=== PATIENT | female | born 1960 | race Caucasian/White ===

== ENCOUNTER 2020-09-21 06:32 | Day surgery (SDC) | payer OTHER, SELFPAY ==
[2020-09-17 08:56] VITALS: BMI 19.6
--- NOTE | 2020-09-19 10:45 | HO.ANESPROP2 ---
Documented by User: Ashley Buckley 09/19/20 10:46 HPI - Anesthesia Eval Consult details Narrative: 59yo F for Colonoscopy PMFSH Active Problems Active Problems: All Active Problems (Updated 09/17/20 @ 08:56 by Yi Monique) Idiopathic retinal vasculitis, retinal aneurysm, and neuroretinitis syndrome (Acute) Past Medical History Medical History COVID-19 vaccine administered Retinal vasculitis Surgical History Surgical History H/O arthroscopic knee surgery H/O colonoscopy Social History Social History Are you a primary nonfarm animal caretaker to a significant other at home: No Do you presently have visiting nurse or other home services: No Use of substances other than those prescribed or required for medical reasons: No Have you been hit, kicked, punched, or otherwise hurt by someone within the past year? If so, by whom?: No Are you DNR?: No Advance Directives Information Provided: No Recently lost weight without trying: No Eating poorly because of decreased appetite: No Nutrition Risks: No Nutritional Risk Poor oral hygiene: No Meds Allergies Allergy/AdvReac Type Severity Reaction Status Date / Time erythromycin base Allergy Intermediate Hives Verified 09/17/20 08:52 [ERYTHROMYCIN BASE] Penicillins [PENICILLINS] Allergy Intermediate Hives Verified 09/17/20 08:52 Sulfa (Sulfonamide Allergy Intermediate Hives Verified 09/17/20 08:52 Antibiotics) [SULFA (SULFONAMIDE ANTIBIOTICS)] Home Medications Medication Instructions Recorded Confirmed Last Taken Type cholecalciferol (vitamin D3) 125 mcg PO DAILY 03/08/20 09/17/20 Unknown History [Vitamin D3] cyclosporine modified 100 mg PO DAILY 03/08/20 09/17/20 Unknown History lactobacillus combination no.4 3,000 mmu cells PO DAILY 03/08/20 09/17/20 Unknown History [Probiotic] mycophenolate mofetil 500 mg PO BID 03/08/20 09/17/20 Unknown History omega-3 fatty acids [Fish Oil] 1,000 mg PO DAILY 03/08/20 09/21/20 09/12/20 History calcium carbonate [Calcium 600] 600 mg PO DAILY 09/17/20 09/17/20 Unknown History ferrous sulfate 27 mg PO DAILY 09/17/20 09/21/20 09/12/20 History rituximab [Rituxan] 10 mg IV Q10W 09/17/20 09/17/20 09/13/20 History vitamin B complex 1 cap PO DAILY 09/17/20 09/17/20 Unknown History Exam Exam Date and Time: September 19, 2020 1045 Height,Weight and Vital Signs: Height 5 ft 5 in Weight 53.524 kg Pertinent Lab Results Pertinent Lab Results: Laboratory Tests 09/13/20 09/13/20 08:52 08:52 WBC 8.9 Hgb 12.8 Hct 39.8 Plt Count 275 Sodium 142 Potassium 4.3 Chloride 106 Carbon Dioxide 27 BUN 18 H Creatinine 0.92 Assessment and Plan Assessment Anesthesia Assessment: Chart Reviewed Documented by User: Mikal León 09/21/20 07:14 PMF Past Medical History Medical History COVID-19 vaccine administered Retinal vasculitis Surgical History Surgical History H/O arthroscopic knee surgery H/O colonoscopy Social History Social History Are you a primary nonfarm animal caretaker to a significant other at home: No Do you presently have visiting nurse or other home services: No Use of substances other than those prescribed or required for medical reasons: No Have you been hit, kicked, punched, or otherwise hurt by someone within the past year? If so, by whom?: No Are you DNR?: No Advance Directives Information Provided: No Recently lost weight without trying: No Eating poorly because of decreased appetite: No Nutrition Risks: No Nutritional Risk Poor oral hygiene: No Meds Allergies Allergy/AdvReac Type Severity Reaction Status Date / Time erythromycin base Allergy Intermediate Hives Verified 09/17/20 08:52 [ERYTHROMYCIN BASE] Penicillins [PENICILLINS] Allergy Intermediate Hives Verified 09/17/20 08:52 Sulfa (Sulfonamide Allergy Intermediate Hives Verified 09/17/20 08:52 Antibiotics) [SULFA (SULFONAMIDE ANTIBIOTICS)] Home Medications Medication Instructions Recorded Confirmed Last Taken Type cholecalciferol (vitamin D3) 125 mcg PO DAILY 03/08/20 09/17/20 Unknown History [Vitamin D3] cyclosporine modified 100 mg PO DAILY 03/08/20 09/17/20 Unknown History lactobacillus combination no.4 3,000 mmu cells PO DAILY 03/08/20 09/17/20 Unknown History [Probiotic] mycophenolate mofetil 500 mg PO BID 03/08/20 09/17/20 Unknown History omega-3 fatty acids [Fish Oil] 1,000 mg PO DAILY 03/08/20 09/21/20 09/12/20 History calcium carbonate [Calcium 600] 600 mg PO DAILY 09/17/20 09/17/20 Unknown History ferrous sulfate 27 mg PO DAILY 09/17/20 09/21/20 09/12/20 History rituximab [Rituxan] 10 mg IV Q10W 09/17/20 09/17/20 09/13/20 History vitamin B complex 1 cap PO DAILY 09/17/20 09/17/20 Unknown History Exam Airway Mallampati Class: II TM Dist: >3cm Neck ROM: Full
[2020-09-21 06:41] VITALS: BP 98/64; PULSE 60; RESP 16; TEMP 36.6; O2SAT 99
[2020-09-21] MEDS: Lactated Ringers 1,000 ML 100 ML IVCONT (07:03)
--- NOTE | 2020-09-21 07:33 | MHC.SHP ---
Pre-Procedural Eval Section B Chief Complaint: change in bowel habit Details of Present Illness: screening Relevant Family History (Specify if Yes): No Relevant Social History: None Present Medications: see Short Stay Collaborative assessment Medical History: No relevant PMH History of Previous Operations: No relevant previous surgery Allergies: Allergies Allergy/AdvReac Type Severity Reaction Status Date / Time erythromycin base Allergy Intermediate Hives Verified 09/17/20 08:52 [ERYTHROMYCIN BASE] Penicillins [PENICILLINS] Allergy Intermediate Hives Verified 09/17/20 08:52 Sulfa (Sulfonamide Allergy Intermediate Hives Verified 09/17/20 08:52 Antibiotics) [SULFA (SULFONAMIDE ANTIBIOTICS)] Review of Systems Sugical H&P ROS: Negative: Constitution, Cardiovascular, Respiratory, Neurological, Psychiatric, Hem-Onc, Allergic/Immunologic, Gastrointestinal, Genitourinary, Musculoskeletal, Integumentary, Endocrine and Eyes/Ears/Nose/Throat Exam Surgical H&P Exam: Normal: HEENT, Normal: Heart, Normal: Lungs, Normal: Extremities, Normal: Abdomen, Normal: Skin and Normal: Neurological Plan Diagnosis/Plan: Unchanged I have reviewed the history and physical and performed a pertinent physical examination on my patient. No changes have occurred unless specified.
[2020-09-21 08:11] VITALS: BP 89/56; PULSE 65; RESP 18; TEMP 36.6; O2SAT 98
--- NOTE | 2020-09-21 08:13 | PM.OP ---
Brief Operative Note Date of Service: 09/21/20 Pre-op diagnosis: screening Post-op diagnosis: same Procedure: colonoscopy Surgeon: Heath Castellano Was an Communications Equipment Operator used for this Procedure?: No Estimated blood loss (mL): 0 Pathology: none sent Condition: stable
[2020-09-21 08:26] VITALS: BP 98/62; PULSE 67; RESP 18; TEMP 36.4
--- NOTE | 2020-09-21 11:00 | OP_ITS ---
SURGEON: Heath Castellano MD INDICATIONS: Colon cancer screening, change in bowel habits, and prior history of adenomatous colon polyps. PREOPERATIVE DIAGNOSIS: POSTOPERATIVE DIAGNOSIS: PROCEDURE PERFORMED: Colonoscopy to the terminal ileum. ESTIMATED BLOOD LOSS: COMPLICATIONS: ANESTHESIA: ASSISTANTS: SPECIMENS: MEDICATIONS: Monitored anesthesia care. DESCRIPTION OF PROCEDURE: History and physical performed. The risks and benefits of the procedure were explained to the patient. Informed consent was obtained. The patient was placed in the left lateral decubitus position. A digital rectal exam was performed and was found to be normal. The Olympus pediatric video colonoscope was introduced into the rectum and advanced to the cecum without difficulty. The cecum was identified by transillumination, palpation, and identification of ileocecal valve. Examination was performed and the scope was removed. She tolerated the procedure well and was taken to recovery area in stable condition. FINDINGS: The terminal ileum was examined and appeared normal briefly. The visualized colonic mucosa was within normal limits without evidence of masses or ulcers. There was some liquid stool in the colon, which was washed and suctioned as best possible. No polyps were identified. Retroflexed examination showed small internal hemorrhoids. IMPRESSION: Normal colonoscopy. RECOMMENDATIONS: 1. Follow up as needed. 2. Repeat colonoscopy is recommended in 5 to 10 years based on current screening guidelines. MD NAZARIO Pepe/YUMIKO / [id number] MTDD
== END 2020-09-21 09:20 | disposition home or self-care (01) ==
PROVIDERS: PCP Internal Medicine; Visit Provider Internal Medicine Gastroenterology
PROC: 0DJD8ZZ Inspection of Lower Intestinal Tract, Via Natural or Artificial Opening Endoscopic (ICD-10-PCS; CPT 45378; principal; 2020-09-21 07:30)
DX: R19.4 Change in bowel habit (principal); Z86.010 Personal history of colon polyps; K64.8 Other hemorrhoids; H35.069 Retinal vasculitis, unspecified eye; M19.90 Unspecified osteoarthritis, unspecified site; Z79.899 Other long term (current) drug therapy
CPT/HCPCS: 45378

== ENCOUNTER → 2020-12-21 07:37 | Outpatient (BNVA) | payer OTHER, SELFPAY | PROVIDERS: Visit Provider Student in an Organized Health Care Education/Training Program ==

== ENCOUNTER → 2024-01-05 10:05 | Outpatient (RCR) | payer OTHER, SELFPAY ==
[2020-03-08 08:20] VITALS: BMI 20.7
[2020-03-08 08:21] VITALS: BP 120/73; PULSE 86; RESP 18; TEMP 36.5; O2SAT 99
[2020-03-08 08:28] LABS: MANUAL DIFF FLAG NO
[2020-03-08 08:34] LABS: Basophils Absolute Auto 0.1 X10*3/uL (0.0-0.2); Basophils Percent Auto 0.8 % (0-2); Eosinophils Absolute Auto 0.1 X10*3/uL (0.0-0.4); Eosinophils Percent Auto 0.7 % (0-4); Hemoglobin 13.5 g/dl (12.0-16.0); Imm Gran Abs Auto 0.02 X10*3/uL (0.00-0.03); Imm Gran Pct Auto 0.2 % (0.0-0.4); Lymphocytes Absolute Auto 1.2 X10*3/uL (1.2-4.9); Lymphocytes Percent Auto 13.5 % (20-40); Mean Corpuscular HGB Conc 32.1 g/dl (31.0-35.0); Mean Corpuscular Hemoglobin 28.2 pg (27.0-33.0); Mean Corpuscular Volume 87.7 fL (80-98); Mean Platelet Volume 9.2 fL (9.4-12.3); Monocytes Absolute Auto 0.9 X10*3/uL (0.1-1.2); Monocytes Percent Auto 9.8 % (2-11); Neutrophils Absolute Auto 6.7 X10*3/uL (2.0-8.3); Platelet Count 293 X10*3/uL (160-400); Red Blood Count 4.79 X10*6/uL (4.20-5.50); Red Cell Distribution Width 13.2 % (11.0-16.0); White Blood Count 8.9 X10*3/uL (4.8-10.8)
[2020-03-08 09:00] LABS: Alanine Aminotransferase 23 U/L (0-31); Albumin Level 4.4 g/dL (3.5-5.0); Alkaline Phosphatase 82 U/L (39-117); Anion Gap 12 (12-20); Aspartate Amino Transferase 29 U/L (5-31); Bilirubin Total 0.6 mg/dL (0.0-1.0); Blood Urea Nitrogen 12 mg/dL (9-16); Calcium 9.1 mg/dL (8.4-10.2); Carbon Dioxide 30 mmol/L (22-29); Chloride 104 mmol/L (96-108); Estimated Glomerular Filt Rate 58; Glucose Random 80 mg/dL (60-115); Potassium 3.8 mmol/l (3.3-5.1); Sodium 142 mmol/L (135-145); Total Protein 6.8 g/dL (6.5-8.0)
[2020-03-08] MEDS: Acetaminophen 325 MG TABLET 650 MG PO (10:09)
[2020-03-08] MEDS: diphenhydrAMINE HCL 25 MG TABLET 50 MG PO (10:10)
[2020-03-08] MEDS: methylPREDNISolone Sod Succ/PF 125 MG/2 ML VIAL IVPUSH (10:10)
[2020-05-03 08:17] VITALS: BP 115/63; PULSE 82; RESP 18; TEMP 36.9; O2SAT 99; BMI 20.2
[2020-05-03 09:01] LABS: MANUAL DIFF FLAG NO
[2020-05-03 09:18] LABS: Basophils Absolute Auto 0.1 X10*3/uL (0.0-0.2); Basophils Percent Auto 0.6 % (0-2); Eosinophils Absolute Auto 0.1 X10*3/uL (0.0-0.4); Eosinophils Percent Auto 0.7 % (0-4); Hematocrit 41.8 % (37-47); Hemoglobin 13.5 g/dl (12.0-16.0); Imm Gran Abs Auto 0.01 X10*3/uL (0.00-0.03); Imm Gran Pct Auto 0.1 % (0.0-0.4); Lymphocytes Absolute Auto 1.1 X10*3/uL (1.2-4.9); Lymphocytes Percent Auto 13.6 % (20-40); Mean Corpuscular HGB Conc 32.3 g/dl (31.0-35.0); Mean Corpuscular Hemoglobin 28.2 pg (27.0-33.0); Mean Corpuscular Volume 87.4 fL (80-98); Mean Platelet Volume 9.1 fL (9.4-12.3); Monocytes Percent Auto 11.7 % (2-11); Neutrophils Percent Auto 73.3 % (45-73); Platelet Count 295 X10*3/uL (160-400); Red Blood Count 4.78 X10*6/uL (4.20-5.50); Red Cell Distribution Width 13.1 % (11.0-16.0); White Blood Count 8.2 X10*3/uL (4.8-10.8)
[2020-05-03 09:44] LABS: Alanine Aminotransferase 33 U/L (0-31); Albumin Level 4.2 g/dL (3.5-5.0); Alkaline Phosphatase 76 U/L (39-117); Anion Gap 12 (12-20); Aspartate Amino Transferase 36 U/L (5-31); Bilirubin Total 0.6 mg/dL (0.0-1.0); Blood Urea Nitrogen 17 mg/dL (9-16); Calcium 8.8 mg/dL (8.4-10.2); Carbon Dioxide 26 mmol/L (22-29); Chloride 104 mmol/L (96-108); Creatinine Clr Calc Pharmacy 58.6; Estimated Glomerular Filt Rate > 60; Glucose Random 78 mg/dL (60-115); Potassium 4.2 mmol/l (3.3-5.1); Sodium 138 mmol/L (135-145); Total Protein 6.3 g/dL (6.5-8.0)
[2020-05-03] MEDS: diphenhydrAMINE HCL 25 MG TABLET 50 MG PO (10:02)
[2020-05-03] MEDS: Acetaminophen 325 MG TABLET 650 MG PO (10:02)
[2020-05-03] MEDS: methylPREDNISolone Sod Succ/PF 125 MG/2 ML VIAL IVPUSH (10:05)
--- NOTE | 2020-05-03 13:07 | MHC.HEMONC ---
Pt here for chemo infusion. Labs drawn and reviewed. IV started left forearm. Chemo infused and pt tolerated well. Next appointment scheduled for 2 months.
--- NOTE | 2020-05-03 16:24 | MHC.HEMONCSW ---
KATT JORGENSEN AT [facility].....A# [id number] FOR RITUXAN 11/08/19 TO 05/05/20 TODAY I ATTEMPTED TO RENEW THIS MEDICATION BUT IT WENT TO [facility] CLINICAL REVIEW. T# [id number] WAIT DECISION.
--- NOTE | 2020-05-04 14:34 | MHC.HEMONCSW ---
PER RN SHANTI, WE DO NOT ORDER RITUXAN. I PHONED, SPOKE WITH NELSON AND RECINDED REFERRAL. JORDIN WILL HAVE THE REFERRING PROVIDER GET THE AUTH.
[2020-07-05 08:12] VITALS: BP 119/69; PULSE 90; RESP 18; TEMP 37.2; O2SAT 98; BMI 20.2
[2020-07-05 08:38] LABS: MANUAL DIFF FLAG NO
[2020-07-05 08:43] LABS: Basophils Absolute Auto 0.1 X10*3/uL (0.0-0.2); Basophils Percent Auto 0.7 % (0-2); Eosinophils Percent Auto 0.3 % (0-4); Hematocrit 41.4 % (37-47); Hemoglobin 13.1 g/dl (12.0-16.0); Imm Gran Abs Auto 0.03 X10*3/uL (0.00-0.03); Imm Gran Pct Auto 0.3 % (0.0-0.4); Lymphocytes Percent Auto 9.5 % (20-40); Mean Corpuscular HGB Conc 31.6 g/dl (31.0-35.0); Mean Corpuscular Hemoglobin 27.9 pg (27.0-33.0); Mean Corpuscular Volume 88.3 fL (80-98); Mean Platelet Volume 9.4 fL (9.4-12.3); Monocytes Absolute Auto 0.8 X10*3/uL (0.1-1.2); Monocytes Percent Auto 7.7 % (2-11); Neutrophils Absolute Auto 8.8 X10*3/uL (2.0-8.3); Neutrophils Percent Auto 81.5 % (45-73); Platelet Count 314 X10*3/uL (160-400); Red Blood Count 4.69 X10*6/uL (4.20-5.50); Red Cell Distribution Width 12.7 % (11.0-16.0); White Blood Count 10.7 X10*3/uL (4.8-10.8)
[2020-07-05 09:20] LABS: Alanine Aminotransferase 17 U/L (0-31); Albumin Level 4.3 g/dL (3.5-5.0); Alkaline Phosphatase 85 U/L (39-117); Anion Gap 13 (12-20); Aspartate Amino Transferase 22 U/L (5-31); Bilirubin Total 0.5 mg/dL (0.0-1.0); Blood Urea Nitrogen 21 mg/dL (9-16); Calcium 9.2 mg/dL (8.4-10.2); Carbon Dioxide 26 mmol/L (22-29); Chloride 108 mmol/L (96-108); Creatinine Clr Calc Pharmacy 53.7; Estimated Glomerular Filt Rate > 60; Glucose Random 68 mg/dL (60-115); Potassium 4.1 mmol/L (3.3-5.1); Sodium 143 mmol/L (135-145); Total Protein 6.7 g/dL (6.5-8.0)
[2020-07-05] MEDS: methylPREDNISolone Sod Succ 125 MG/2 ML VIAL IVPUSH (09:45)
[2020-07-05] MEDS: Acetaminophen 325 MG TABLET 650 MG PO (09:48)
[2020-07-05] MEDS: diphenhydrAMINE HCL 25 MG TABLET 50 MG PO (09:49)
--- NOTE | 2020-07-05 12:21 | MHC.HEMONC ---
Pt here for Rituximab infusion. Labs drawn and reviewed. IV started left forearm. Infusion done and pt tolerated well. Scheduled to return for next treatment in 2 months.
[2020-09-13 08:22] VITALS: BP 128/78; PULSE 83; RESP 18; TEMP 36.6; O2SAT 100; BMI 20.9
[2020-09-13 09:03] LABS: MANUAL DIFF FLAG NO
[2020-09-13 09:05] LABS: Basophils Absolute Auto 0.1 X10*3/uL (0.0-0.2); Basophils Percent Auto 0.8 % (0-2); Eosinophils Absolute Auto 0.1 X10*3/uL (0.0-0.4); Eosinophils Percent Auto 0.6 % (0-4); Hematocrit 39.8 % (37-47); Hemoglobin 12.8 g/dl (12.0-16.0); Imm Gran Abs Auto 0.03 X10*3/uL (0.00-0.03); Imm Gran Pct Auto 0.3 % (0.0-0.4); Lymphocytes Absolute Auto 1.1 X10*3/uL (1.2-4.9); Lymphocytes Percent Auto 12.8 % (20-40); Mean Corpuscular HGB Conc 32.2 g/dl (31.0-35.0); Mean Corpuscular Hemoglobin 28.3 pg (27.0-33.0); Mean Corpuscular Volume 88.1 fL (80-98); Mean Platelet Volume 9.1 fL (9.4-12.3); Monocytes Absolute Auto 0.9 X10*3/uL (0.1-1.2); Monocytes Percent Auto 10.1 % (2-11); Neutrophils Absolute Auto 6.7 X10*3/uL (2.0-8.3); Neutrophils Percent Auto 75.4 % (45-73); Platelet Count 275 X10*3/uL (160-400); Red Blood Count 4.52 X10*6/uL (4.20-5.50); Red Cell Distribution Width 13.3 % (11.0-16.0); White Blood Count 8.9 X10*3/uL (4.8-10.8)
[2020-09-13 09:37] LABS: Alanine Aminotransferase 14 U/L (0-31); Albumin Level 4.1 g/dL (3.5-5.0); Alkaline Phosphatase 85 U/L (39-117); Anion Gap 13 (12-20); Aspartate Amino Transferase 19 U/L (5-31); Bilirubin Total 0.7 mg/dL (0.0-1.0); Blood Urea Nitrogen 18 mg/dL (9-16); Calcium 9.4 mg/dL (8.4-10.2); Carbon Dioxide 27 mmol/L (22-29); Chloride 106 mmol/L (96-108); Creatinine Clr Calc Pharmacy 54.3; Estimated Glomerular Filt Rate > 60; Glucose Random 74 mg/dL (60-115); Potassium 4.3 mmol/L (3.3-5.1); Sodium 142 mmol/L (135-145); Total Protein 6.4 g/dL (6.5-8.0)
[2020-09-13] MEDS: diphenhydrAMINE HCL 25 MG TABLET 50 MG PO (09:54)
[2020-09-13] MEDS: Acetaminophen 325 MG TABLET 650 MG PO (09:55)
--- NOTE | 2020-09-13 13:09 | MHC.HEMONC ---
Pt here for Cycle 4 day 1 of Ritoxan IV. Blood drawn by bird trapper and sent to lab. Peripheral IV, #22, inserted in left forearm per pt request. 0.9% NS infusing. Lab results reviewed. Pt pre-medicated with benadryl 50mg orally and tylenol 650mg orally, pt declined other ordered pre medications. Pt states she feels well today. Ritoxan IV given as ordered. Tolerated well. Peripheral IV removed, no edema or redness at site. Follow up appointment made, discharge instructions and post chemo education literature given to pt. Discharged home.
[2020-11-22 08:16] VITALS: BP 118/62; PULSE 87; RESP 20; TEMP 36.4; O2SAT 99; BMI 20.7
[2020-11-22 08:41] LABS: MANUAL DIFF FLAG NO
[2020-11-22 08:45] LABS: Basophils Absolute Auto 0.1 X10*3/uL (0.0-0.2); Basophils Percent Auto 0.7 % (0-2); Eosinophils Percent Auto 0.3 % (0-4); Hematocrit 40.5 % (37-47); Imm Gran Abs Auto 0.02 X10*3/uL (0.00-0.03); Imm Gran Pct Auto 0.2 % (0.0-0.4); Lymphocytes Percent Auto 11.1 % (20-40); Mean Corpuscular HGB Conc 32.1 g/dl (31.0-35.0); Mean Corpuscular Hemoglobin 28.1 pg (27.0-33.0); Mean Corpuscular Volume 87.5 fL (80-98); Mean Platelet Volume 9.1 fL (9.4-12.3); Monocytes Absolute Auto 0.9 X10*3/uL (0.1-1.2); Monocytes Percent Auto 9.7 % (2-11); Neutrophils Absolute Auto 7.1 X10*3/uL (2.0-8.3); Platelet Count 299 X10*3/uL (160-400); Red Blood Count 4.63 X10*6/uL (4.20-5.50); Red Cell Distribution Width 13.1 % (11.0-16.0); White Blood Count 9.1 X10*3/uL (4.8-10.8)
[2020-11-22 09:13] LABS: Alanine Aminotransferase 15 U/L (0-31); Albumin Level 4.1 g/dL (3.5-5.0); Alkaline Phosphatase 89 U/L (39-117); Anion Gap 13 (12-20); Aspartate Amino Transferase 23 U/L (5-31); Bilirubin Total 0.5 mg/dL (0.0-1.0); Blood Urea Nitrogen 16 mg/dL (9-16); Calcium 9.7 mg/dL (8.4-10.2); Carbon Dioxide 24 mmol/L (22-29); Chloride 109 mmol/L (96-108); Creatinine Clr Calc Pharmacy 55.3; Estimated Glomerular Filt Rate > 60; Glucose Random 69 mg/dL (60-115); Sodium 142 mmol/L (135-145); Total Protein 6.4 g/dL (6.5-8.0)
[2020-11-22] MEDS: diphenhydrAMINE HCL 25 MG TABLET 50 MG PO (09:34)
[2020-11-22] MEDS: Acetaminophen 325 MG TABLET 650 MG PO (09:35)
--- NOTE | 2020-11-22 12:23 | MHC.HEMONC ---
Pt here for Cycle 5 day 1 Rituxan. Labs drawn peripherally by men's locker room attendant-specimen sent to lab. #22 angio inserted in left forearm with blood return noted. 0.9% NS infusing. Pt states she feels well today. Lab results reviewed. Pre medicated with Benadryl 50mg and tylenol 650mg orally. Pt declines solumedrol as pre treatment medication. Rituxan IV given as ordered, after 30 minutes Iv site infiltrated and was removed. Pt declined ice to site-area slightly edematous. #22 angio inserted in right forearm without difficulty-blood return noted. Rituxan infusion continued with no further infiltration noted. Peripheral IV removed-no edema or redness at site. Follow up appointment scheduled. Discharge packet given. Discharged home.
--- NOTE | 2021-01-29 12:40 | MHC.HEMONC ---
pt is no longer a pt of dr Santiago. pt called at home to find to who will order Rituxin. pt report just seeing Dr Schrader and states she no longer needs this infusion. pt will call our office if things change in the future.
== END | disposition home or self-care (01) ==
LOC: HO.ONC 03-08 08:15
PROVIDERS: PCP Internal Medicine; Visit Provider Student in an Organized Health Care Education/Training Program
DX: H35.069 Retinal vasculitis, unspecified eye (principal)
CPT/HCPCS: 36415; 80053; 85025; 96375; 96413; 96415; J2930; J9312; Q0163